=== PATIENT | male | born 1965 | race Hispanic/Latino ===

== ENCOUNTER → 2024-04-26 | Outpatient (CLI) | payer BC | END | disposition home or self-care (01) | LOC: RAH 13:38 | PROVIDERS: ATTEND Student in an Organized Health Care Education/Training Program | DX: M19.011 Primary osteoarthritis, right shoulder (principal); G25.89 Other specified extrapyramidal and movement disorders | CPT/HCPCS: 73221 ==

== ENCOUNTER 2024-07-01 05:43 | Day surgery (SDC) | payer BC ==
[2024-06-30 10:53] VITALS: BP 146/79; PULSE 77; RESP 18; TEMP 97.2
[~2024-07-01] VITALS: Ht 167.6 cm; Wt 73.5 kg
[2024-07-01] VITALS (14 sets, daily range): BP systolic 105–132; BP diastolic 55–70; PULSE 70–89; RESP 10–21; TEMP 97.1–97.9
[~2024-07-01 05:43] MED LIST: AEC81 PO; EMPA25TA PO; GLIP5TAB15 PO; LISI40TA9 PO; METF-444 PO; ROSU20TA73 PO; TIRZ2.5P SQ
[2024-07-01] MEDS: ceFAZolin SODIUM 2 GM VIAL ONE (06:53)
[2024-07-01] MEDS: 0.9%NACL 1000ML 1,000 ML IV ONE (06:53)
[2024-07-01] MEDS ORDERED: acetaMINOPHEN 1,000 MG/100 ML VIAL IV ONE (08:06)
[2024-07-01] MEDS ORDERED: FAMOTIDINE 20MG VIAL IV ONE (08:06)
[2024-07-01] MEDS ORDERED: ROPivacaine 0.5% 5MG/ML 30ML ONE (08:07)
[2024-07-01] MEDS ORDERED: ketaMINE 50MG/ML SYRINGE 50 MG/ML DISP.SYRIN ONE (08:08)
[2024-07-01] MEDS ORDERED: LIDOCAINE PF 100MG/5ML (2%) SYRINGE 5ML ONE (08:14)
[2024-07-01] MEDS ORDERED: proPOFol 10 MG/ML 20ML VIAL IV ONE (08:15)
[2024-07-01] MEDS ORDERED: FENTanyl CITRate PF 50 MCG/1 ML 2ML VIAL ONE (08:15)
[2024-07-01] MEDS ORDERED: rocuRONium bROMide 10MG/1ML 5ML VL ONE ×2 (08:15→10:18)
[2024-07-01] MEDS ORDERED: ONDANSETRON 4MG INJ ONE (08:58)
[2024-07-01] MEDS ORDERED: dexaMETHasone SOD PHOSPHATE 10MG/ML 1ML VIAL ONE (08:58)
[2024-07-01] MEDS ORDERED: ePHEDrine SULFate 50 MG/ML AMPULE ONE (09:00)
[2024-07-01] MEDS ORDERED: PHENYLEPHRINE HCL 10 MG/ML 1ML VIAL IV ONE (09:33)
[2024-07-01] MEDS ORDERED: GLYCOPYRROLATE 0.2 MG/ML 5 ML VIAL ONE (09:33)
[2024-07-01] MEDS ORDERED: NEOSTIGMINE METHYLSULFATE 1MG/ML IV ONE (09:33)
[2024-07-01] MEDS: EPINEPHrine PF 1MG (1:1,000) 1 MG/ML AMP ONE (09:43)
[2024-07-01] MEDS ORDERED: HYDR-4060 PO (11:46)
[2024-07-01] MEDS ORDERED: CYCL-309 PO (11:46)
== END 2024-07-01 13:25 | disposition home or self-care (01) ==
LOC: DAH 05:43
PROVIDERS: ATTEND Student in an Organized Health Care Education/Training Program
DX: M24.111 Other articular cartilage disorders, right shoulder (principal); M75.111 Incomplete rotator cuff tear or rupture of right shoulder, not specified as traumatic; M75.21 Bicipital tendinitis, right shoulder; M62.838 Other muscle spasm; G25.89 Other specified extrapyramidal and movement disorders; I10 Essential (primary) hypertension; E11.9 Type 2 diabetes mellitus without complications; E78.5 Hyperlipidemia, unspecified; Z95.1 Presence of aortocoronary bypass graft; I25.10 Atherosclerotic heart disease of native coronary artery without angina pectoris; Z90.49 Acquired absence of other specified parts of digestive tract; Z88.6 Allergy status to analgesic agent; Z88.8 Allergy status to other drugs, medicaments and biological substances; Z79.82 Long term (current) use of aspirin; Z79.84 Long term (current) use of oral hypoglycemic drugs; Z79.899 Other long term (current) drug therapy
CPT/HCPCS: 86140; 36415; 29827; 64415; 29828; 29826; 82948 ×2; 93005; A4663; J7030 ×2; A4452; J3490 ×6; J3010; J1100; J2001; J0171; J2704; J2405; J2710; J2795; J2371; J0690; A6223; A4930; A4649; C1713 ×2; A5120; A4215; A4223; A4222; A4221; A4600

== ENCOUNTER → 2024-08-30 | Outpatient (CLI) | payer BC ==
[~2024-08-30] MED LIST changes: +CYCL-309 PO; +HYDR-4060 PO; -ROSU20TA73 PO; +ROSU20TA98 PO
== END | disposition home or self-care (01) ==
LOC: SHCH 09:28
PROVIDERS: ATTEND Internal Medicine Cardiovascular Disease
DX: I73.9 Peripheral vascular disease, unspecified (principal)
CPT/HCPCS: 93925

== ENCOUNTER → 2024-09-05 | Outpatient (CLI) | payer BC ==
[2024-09-05] MEDS: REGADENOSON 0.4 MG/5 ML PF SYG IVP ONE (16:02)
--- NOTE | 2024-09-07 09:27 | HMCSR ---
APPROVED REPORT Height: 5 ft 6in Weight: 166 lbs TEST INDICATIONS ATHSCL HRT DZ OF NTV COR ART W UNSP ANG PCT The imaging protocol used to acquire images was Rest Tc-99m/stress Tc-99m 1 day Consent: The procedure was explained and understood by the patient. Informerd consent was witnessed Genaro TORRES RN First, low dose rest was performed then high dose stress. RESTING DATA: The resting ekg shows: NSR Rest SPECT myocardial perfusion imaging was performed in supine position 80 minutes following the int ravenous injection of 10.5 mCi of Tc-99 Sestamibi. Time of rest injection: 08:30: Date: 09/05/2024 Time of rest imagin:50: Date: 09/05/2024 PHARMACOLOGIC STRESS: Pharmacologic stress test was performed by injecting regadenoson 0.4 mg IV push followed by the intra venous injection of 27.6 mCi of Tc-99 Sestamibi. Time of stress injection: 10:10: Date: 09/05/2024 Time of stress imagin:18: Date: 09/05/2024 Heart Rate at time of stress injection: 76 bpm. Gated Stress SPECT was performed 128 minutes after stress injection. The images were gated to evaluate regional wall motion and calculate left ventricular ejection fracti on. STRESS DETAILS Reason for Termination: Infusion complete Stress Symptoms: Warm Max HR Achieved: 94 bpm % of APMHR Achieved: 59 Max Blood Pressure: 134/70 mmHg Stress ECG: NSR Study quality was fair. Lung uptake was Normal. Artifact: No artifact LEFT VENTRICLE Size: The left ventricular size is normal. Systolic Function:The left ventricular systolic function is normal. Wall Motion: No regional wall motion abnormalities noted. The left ventricular ejection fraction was calculated to be 46%.TID = 1.00. LV PERFUSION Single segment apical septal reversible defect of moderate severity, uncertain significance. RV Size/Shape Normal RV Conclusion The left ventricular ejection fraction was calculated to be 46%.TID = 1.00. Single segment apical septal reversible defect of moderate severity, uncertain significance.
== END | disposition home or self-care (01) ==
LOC: SHCH 08:05
PROVIDERS: ATTEND Internal Medicine Cardiovascular Disease
DX: I25.119 Atherosclerotic heart disease of native coronary artery with unspecified angina pectoris (principal)
CPT/HCPCS: 78452; 93017; J2785; A9500 ×2

== ENCOUNTER 2024-09-28 06:35 | Day surgery (SDC) | payer BC ==
[2024-09-26 12:01] LABS: BASOPHILS # (AUTO) 0.05 K/uL (0.00-0.20); BASOPHILS % (AUTO) 0.7 % (0.0-5.0); EOSINOPHILS # (AUTO) 0.07 K/uL (0.00-0.70); HEMATOCRIT 49.9 % (42-54); IMMATURE GRANULOCYTE ABSOLUTE 0.01 K/uL (0-1); LYMPHOCYTES # (AUTO) 1.6 K/uL (1.0-4.8); MEAN CORPUSCULAR HEMOGLOBIN 30.2 pg (27.0-33.0); MEAN CORPUSCULAR HGB CONC 32.1 g/dL (32.0-36.0); MEAN CORPUSCULAR VOLUME 94.2 fL (79-99); MONOCYTES # (AUTO) 0.5 K/uL (0.1-1.0); MONOCYTES % (AUTO) 7.1 % (3.0-13.0); NEUTROPHILS # (AUTO) 4.5 K/uL (1.8-7.7); NEUTROPHILS % (AUTO) 67.1 % (40.0-77.0); PLATELET COUNT (AUTO) 222 K/uL (130-400); RED CELL DISTRIBUTION WIDTH 14.4 % (11.0-15.5); WHITE BLOOD COUNT (AUTO) 6.8 K/uL (4.8-10.8)
[2024-09-26 12:16] LABS: CREATININE 1.2 mg/dL (0.5-1.3); POTASSIUM 4.4 mmol/L (3.5-5.1)
[2024-09-26 12:20] LABS: INR 1.01 (0.85-1.15); PROTHROMBIN TIME 10.9 SEC (9.6-11.6)
[2024-09-26 12:21] LABS: PARTIAL THROMBOPLASTIN TIME 29.1 SEC (26.3-35.5)
[2024-09-26 12:22] VITALS: BP 146/73; PULSE 78; RESP 19; TEMP 97.3
[2024-09-26 12:29] LABS: B-TYPE NATRIURETIC PEPTIDE 5 pg/mL (0-100)
[2024-09-26 12:39] LABS: APPEARANCE,URINE CLEAR (CLEAR); BILIRUBIN,URINE NEGATIVE (NEGATIVE); COLOR,URINE LIGHT-YELLOW (YELLOW); GLUCOSE, URINE (UA) >=1000 mg/dL (NEGATIVE); KETONES,URINE NEGATIVE (NEGATIVE); LEUKOCYTE ESTERASE ,URINE 25 Leu/uL (NEGATIVE); NITRATE,URINE NEGATIVE (NEGATIVE); OCCULT BLOOD,URINE MODERATE (NEGATIVE); PH,URINE 5.5 (5.0-8.0); PROTEIN,URINE 10 mg/dL (NEGATIVE); UROBILINOGEN,URINE 0.2 mg/dL (0.2-1.0)
[2024-09-26 12:43] LABS: ADD UA MICROSCOPIC YES
[2024-09-26 12:49] LABS: BACTERIA,URINE RARE /HPF (None Seen); MUCUS,URINE RARE LPF (None Seen)
--- NOTE | 2024-09-26 12:54 | HMCIMG ---
CHEST 1VW HISTORY: Preop COMPARISON: 04/15/2010 FINDINGS: A frontal projection of the chest was obtained. No acute pulmonary infiltrates is seen. Poststernotomy changes are seen. The heart is enlarged. Degenerative changes of the thoracolumbar spine are present. No evidence of aortic calcification is seen. IMPRESSION: 1. No acute pulmonary infiltrate is seen.
--- NOTE | 2024-09-26 13:22 | EKG ---
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
--- NOTE | 2024-09-27 09:20 | NUR ---
RE: LABS REPORTED UA RESULTS TO NIELS DORANTES NP, NO NEW ORDERS RECEIVED. (PATIENT ASYMPTOMATIC)
[~2024-09-28] VITALS: Ht 167.6 cm; Wt 73.5 kg
[2024-09-28] VITALS (13 sets, daily range): BP systolic 115–147; BP diastolic 67–80; PULSE 66–80; RESP 10–20; TEMP 97.7–97.8
[~2024-09-28 06:35] MED LIST changes: -AEC81 PO; +ASCO500C18 PO; +CHOL2000 PO; +CLOP-31 PO; -CYCL-309 PO; -HYDR-4060 PO; +KRIL1CAP19 PO
[2024-09-28] MEDS: 0.9%NACL 1000ML 1,000 ML IV SCH (07:42)
[2024-09-28] MEDS ORDERED: NITROGLYCERIN 50MG VIAL ONE (08:41)
[2024-09-28] MEDS ORDERED: LIDOCAINE HCL 400MG/20ML VIAL ONE (08:41)
[2024-09-28] MEDS ORDERED: HEParin-NS 1,000 UNIT/500 ML 1,000 ML IV ONE (08:41)
[2024-09-28] MEDS ORDERED: IOHEXOL-350 50ML VIAL IV ONE (08:41)
[2024-09-28] MEDS ORDERED: IOHEXOL 350 MG/ML 100ML INFUS..BTL IV ONE ×2 (08:41→09:30)
[2024-09-28] MEDS ORDERED: HEParin 10,000 UNIT/10ML (1,000 UNIT/ML) VIAL ONE (08:41)
[2024-09-28] MEDS ORDERED: BIVALIRUDIN 250 MG/VIAL IV ONE (08:41)
[2024-09-28] MEDS ORDERED: FENTanyl CITRate PF 50 MCG/1 ML 2ML VIAL ONE (08:43)
[2024-09-28] MEDS ORDERED: MIDAZOLAM HCL 1 MG/ML 2ML VIAL ONE (08:43)
[2024-09-28] MEDS ORDERED: PRASUGREL HCL 10 MG TABLET ONE (09:47)
[2024-09-28] MEDS ORDERED: ASPIRIN 325MG EC TAB PO ONE (09:48)
[2024-09-28] MEDS ORDERED: HEParin-NS 1,000 UNIT/500 ML 500 ML IV ONE (10:14)
[2024-09-28] MEDS ORDERED: 0.9%NACL 1000ML 1,000 ML IV SCH (11:00)
[2024-09-28] MEDS ORDERED: GLUCAGON 1MG KIT 1 MG ML IM PRN (11:00)
[2024-09-28] MEDS ORDERED: DEXTROSE 50%-WATER 50 ML DISP.SYRIN IV PRN (11:00)
[2024-09-28] MEDS ORDERED: INSULIN humuLIN R 100 UNIT/ML 3ML SQ SCH (11:30)
--- NOTE | 2024-09-28 12:01 | PRN ---
DATE OF PROCEDURE: PROCEDURE PERFORMED: LEFT HEART CATHETERIZATION, LEFT VENTRICULOGRAM, LEFT AND RIGHT SELECTIVE CORONARY ANGIOGRAM, INJECTION OF SAPHENOUS VEIN GRAFT TO THE PLVB, INJECTION OF SAPHENOUS VEIN GRAFT TO THE PDA, INJECTION OF JOYCE GRAFT TO THE OM1, INJECTION OF SEQUENTIAL SAPHENOUS VEIN GRAFT TO THE DIAGONAL ONE AND LAD (CHRONICALLY OCCLUDED), PTCA AND STENTING OF THE PDA VIA THE SAPHENOUS VEIN GRAFT WITH A 2.5 X 28 MM XIENCE ALEXEY POINT DRUG-ELUTING STENT, INTRAVASCULAR ULTRASOUND OF THE PDA, AND CONSCIOUS SEDATION CARD MAKER: FRANTZ MONTENEGRO MD, [facility] INDICATION: ABNORMAL LEXISCAN CARDIOLITE STRESS TEST DEMONSTRATED SINGLE SEGMENT APICAL SEPTAL REVERSIBLE ISCHEMIA OF MODERATE SEVERITY. GATED EJECTION FRACTION 46% STUDY DATE 09/05/2024. PROCEDURE NOTE: After informed consent was obtained the patient was prepped and draped in the usual sterile fashion. A 6 Maltese arterial sheath was inserted in the right femoral artery using a modified micropuncture technique with ultrasound guidance. This was performed after fluoroscopic identification of bony landmarks to facilitate a more accurate puncture of the right common femoral artery. The arterial sheath was aspirated and flushed. A 6 Maltese pigtail catheter was then advanced over a J-tipped guidewire to the ascending aorta and was prolapsed into the left ventricle. The catheter was aspirated and flushed and pressure measurements were obtained. A left ventriculogram was then performed in a 30 MARLOW projection. A pullback procedure was then performed, and this catheter was removed over a J-tipped guidewire. A 6F JL-4 was then advanced to the ascending aorta over a J-tipped guidewire, was aspirated and flushed, and was used for selective left coronary angiograms in multiple obliquities. A JR-4 was advanced in a similar fashion to the ascending aorta over a J-tipped guidewire and was used for selective right coronary angiograms in multiple obliquities with findings as outlined below. The JR4 was used for selective injection of the saphenous vein graft to the PDA, saphenous vein graft to the PLVB, and for selective injection of the occluded sequential saphenous vein graft to the diagonal one and LAD. An IMT six Maltese catheter was used for selective injection of the left internal mammary artery. PERCUTANEOUS CORONARY INTERVENTION: A 300 cm 0.014 in BMW guidewire was used for the intervention and provided good support and tracking. An [place] IVUS catheter was used to assess vessel size and characteristics of the proximal PDA stenosis. A 2.5 x 27 mm Euphora NC balloon was used to pre dilate proximal PDA. Subsequently a 2.5 x 28 Xience ALEXEY POINT drug-eluting stent was deployed at 14 atmospheres with a post deployment inflation again to 14 atmospheres to a 0% residual. There was no edge dissection, perforation, or distal embolization. A right common femoral angiogram was performed to assess suitability for Perclose suture closure and the Perclose device was deployed in standard fashion. Perclose suture closure was successful without bleeding or hematoma. The patient tolerated the procedure well and was returned to the holding area in stable condition. FINDINGS: LEFT HEART HEMODYNAMICS: The patient's LVEDP prior to LV-gram was 11 mm of mercury and after LV-gram 15 mm of mercury. There was no aortic valve gradient on pullback procedure. LEFT VENTRICULOGRAM: A left ventriculogram in a 30 degree MARLOW projection demonstrated mild anteroapical hypokinesis with an LVEF of 50-55%. There was no angiographic MR. CORONARY ANGIOGRAM: LEFT MAIN: The left main coronary was normal and there was no dampening or ventricularization of the pressure waveform. LEFT ANTERIOR DESCENDING: The LAD had a diffuse 90% proximal stenosis and was totally occluded after the 1st diagonal. The 1st diagonal was also totally occluded. The sequential saphenous vein graft to the diagonal one and LAD was chronically occluded. There was mild apical LAD filling by [id number] collaterals during injection of the saphenous vein graft to the PDA. LEFT CIRCUMFLEX: The left circumflex was nondominant and had a 90% prox and 90% mid stenosis and terminated as a small distal AV groove branch. There was a 100% occluded proximal OM1 stenosis with a widely patent JOYCE to the OM1. RAMUS INTERMEDIATE BRANCH: There was no ramus intermediate branch. RIGHT CORONARY ARTERY: The right coronary artery was dominant and totally occluded in its mid segment. The PDA filled via a widely patent saphenous vein graft to the proximal PDA and there was 75%, 80%, and 75% sequential lesions in the proximal PDA. The distal PDA provided [id number] collaterals to the apical LAD. There was a widely patent saphenous vein graft to the PLV branch with adequate surgical revascularization. JOYCE GRAFT TO THE OM1: The JOYCE graft to the OM1 was widely patent and there was excellent surgical revascularization of the OM1. SAPHENOUS VEIN GRAFT SEQUENTIALLY TO THE DIAGONAL ONE AND LAD: The saphenous vein graft sequentially to the diagonal one and LAD was chronically occluded. The apical LAD filled faintly by jwiwc-hb-cuoj collaterals from the saphenous vein graft to the PDA. SAPHENOUS VEIN GRAFT TO THE PLVB: The saphenous vein graft to the PLVB was widely patent with excellent surgical revascularization. SAPHENOUS VEIN GRAFT TO THE PDA: The saphenous vein graft to the PDA was widely patent there was 75-80% diffuse proximal PDA stenosis, compromising flow to the distal PDA which also provided xqptc-im-bxzk collaterals to the apical LAD. IMPRESSION: Mild ischemic cardiomyopathy with LVEF of 50-55%. No . No MR. 3/5 grafts patent with patent JOYCE to the OM1, patent saphenous vein graft to the PDA (with 75-80% proximal PDA stenoses), patent saphenous vein graft to the PLVB, and chronically occluded sequential saphenous vein graft to the diagonal one and LAD. Successful PTCA and stenting of the PDA with a 2.5 x 28 mm Xience guide point drug-eluting stent RECOMMENDATION: One year of dual antiplatelet therapy. Continue risk factor modification. COMPLICATIONS OF PROCEDURE: None, the patient tolerated the procedure well and was returned to his room in stable condition. HEMOSTASIS: Perclose suture closure successful without bleeding or hematoma. ESTIMATED BLOOD LOSS: 10 mL. CONTRAST TOTAL: To 15 mL. FRANTZ MONTENEGRO MD Sep 28, 2024 12:01
--- NOTE | 2024-09-28 14:25 | NUR ---
report: hand off communication given to porfirio ordoñez rn
== END 2024-09-28 18:42 | disposition home or self-care (01) ==
LOC: DAH 06:35
PROVIDERS: ATTEND Internal Medicine Cardiovascular Disease
DX: R94.39 Abnormal result of other cardiovascular function study (principal); I25.709 Atherosclerosis of coronary artery bypass graft(s), unspecified, with unspecified angina pectoris; I25.119 Atherosclerotic heart disease of native coronary artery with unspecified angina pectoris; E11.51 Type 2 diabetes mellitus with diabetic peripheral angiopathy without gangrene; I10 Essential (primary) hypertension; E78.2 Mixed hyperlipidemia; Z88.6 Allergy status to analgesic agent; Z95.1 Presence of aortocoronary bypass graft; Z90.49 Acquired absence of other specified parts of digestive tract; Z90.89 Acquired absence of other organs; Z79.01 Long term (current) use of anticoagulants; Z79.899 Other long term (current) drug therapy; Z79.84 Long term (current) use of oral hypoglycemic drugs; Z79.82 Long term (current) use of aspirin
CPT/HCPCS: 80048; 83880; 85025; 85610; 85730; 87086; 81001; 36415 ×2; 71045; 93005; 92978; 85347 ×2; 82948 ×2; 93459; C9604; C1894 ×2; C1769; C1887; C1760; C1753; C1874; C1725; J3010; J3490 ×2; J7030; J1644 ×3; J2250; Q9967 ×2; A4215; A4222; A4221; A4663; A4216; A4606; Q9965 ×3; A4223 ×3; 96360; 96361; 99156; 99157; J0583

== ENCOUNTER → 2025-02-10 | Outpatient (CLI) | payer BC ==
[~2025-02-10] MED LIST changes: -CLOP-31 PO
[2025-02-10 12:02] LABS: BASOPHILS # (AUTO) 0.05 K/uL (0.00-0.20); BASOPHILS % (AUTO) 0.8 % (0.0-5.0); EOSINOPHILS # (AUTO) 0.09 K/uL (0.00-0.70); EOSINOPHILS % (AUTO) 1.4 % (0.0-8.0); HEMATOCRIT 48.4 % (42-54); IMMATURE GRANULOCYTE ABSOLUTE 0.02 K/uL (0-1); LYMPHOCYTES # (AUTO) 2.3 K/uL (1.0-4.8); LYMPHOCYTES % (AUTO) 35.1 % (21.0-51.0); MEAN CORPUSCULAR HEMOGLOBIN 30.3 pg (27.0-33.0); MEAN CORPUSCULAR VOLUME 94.5 fL (79-99); MONOCYTES # (AUTO) 0.6 K/uL (0.1-1.0); MONOCYTES % (AUTO) 8.9 % (3.0-13.0); NEUTROPHILS # (AUTO) 3.6 K/uL (1.8-7.7); NEUTROPHILS % (AUTO) 53.5 % (40.0-77.0); PLATELET COUNT (AUTO) 279 K/uL (130-400); RED BLOOD CELL COUNT(AUTO) 5.12 MIL/uL (4.50-6.20); RED CELL DISTRIBUTION WIDTH 15.5 % (11.0-15.5); WHITE BLOOD COUNT (AUTO) 6.6 K/uL (4.8-10.8)
[2025-02-10 12:14] LABS: ALBUMIN 3.8 g/dL (3.5-5.0); BILIRUBIN,TOTAL 1.5 mg/dL (0.2-1.0); POTASSIUM 5.2 mmol/L (3.5-5.1); TOTAL PROTEIN, SERUM 7.4 g/dL (6.0-8.3)
[2025-02-10 12:36] LABS: HEMOGLOBIN A1C 6.5 % (4.0-6.0)
== END | disposition home or self-care (01) ==
LOC: LAB 09:15
PROVIDERS: ATTEND Nurse Practitioner Acute Care
DX: E78.5 Hyperlipidemia, unspecified (principal); I25.10 Atherosclerotic heart disease of native coronary artery without angina pectoris
CPT/HCPCS: 36415; 80053; 80061; 83036; 85025